=== PATIENT | female | born 1990 | race African-American/Black ===

== ENCOUNTER 2021-01-05 09:40 | Emergency (ER) | payer OTHER | END 2021-01-05 11:00 | disposition home or self-care (01) | LOC: CSHERS 09:40 | DX: N90.89 Other specified noninflammatory disorders of vulva and perineum (principal); F17.210 Nicotine dependence, cigarettes, uncomplicated | CPT/HCPCS: 99283 ==

== ENCOUNTER 2021-08-15 10:22 | Emergency (ER) | payer SELFPAY | END 2021-08-15 12:02 | disposition home or self-care (01) | LOC: CSHERS 10:22 | DX: J00 Acute nasopharyngitis [common cold] (principal); F17.210 Nicotine dependence, cigarettes, uncomplicated | CPT/HCPCS: 99283 ==